=== PATIENT | female | born 1965 | race Caucasian/White ===

== ENCOUNTER 2023-02-22 08:06 | Outpatient (OUT) | payer OTHER, SELFPAY ==
[2023-02-22 08:25] LABS: Basophils Percent Auto 0.5 % (0.2-2.0); Eosinophils Absolute Auto 0.4 10^3/uL (0.0-0.7); Eosinophils Percent Auto 5.3 % (0.9-7.0); Hematocrit 42.6 % (36.0-48.0); Hemoglobin 14.1 g/dL (12.0-16.0); Immature Granulocytes Abs Auto 0.04 10^3/uL (0.00-0.03); Immature Granulocytes Pct Auto 0.5 % (0.0-0.5); Lymphocytes Absolute Auto 3.1 10^3/uL (1.2-3.8); Lymphocytes Percent Auto 37.8 % (20.5-60.0); Mean Corpuscular HGB Conc 33.1 g/dL (29.9-35.2); Mean Corpuscular Volume 87.5 fL (81.0-99.0); Mean Platelet Volume 8.7 fL (9.5-13.5); Monocytes Absolute Auto 0.6 10^3/uL (0.3-0.8); Monocytes Percent Auto 7.8 % (1.7-12.0); Neutrophils Absolute Auto 3.9 10^3/uL (1.4-6.5); Neutrophils Percent Auto 48.1 % (43.0-75.0); Platelet Count 325 10^3/uL (150-450); Red Blood Count 4.87 10^6/uL (4.20-5.40); Red Cell Distribution Width 13.1 % (11.0-15.0); White Blood Count 8.2 10^3/uL (4.0-11.0)
[2023-02-22 09:24] LABS: Alanine Aminotransferase 38 U/L (14-59); Albumin Globulin Ratio 0.9; Albumin Level 3.4 g/dL (3.4-5.0); Alkaline Phosphatase 69 U/L (46-116); Anion Gap 9.7; Aspartate Amino Transferase 19 U/L (15-37); BUN Creatinine Ratio 16.9; Bilirubin Total 0.3 mg/dL (0.2-1.0); Calcium 8.5 mg/dL (8.5-10.1); Carbon Dioxide 28.7 mmol/L (21.0-32.0); Chloride 105 mmol/L (98-107); Chol HDL Ratio 6.6; Cholesterol 224 mg/dL (<=200); Estimated GFR (African America >60 (>=60); Estimated GFR (Non-African Ame >60 (>=60); Glucose 104 mg/dL (74-106); HDL Cholesterol 34 mg/dL (40-60); Potassium 4.4 mmol/L (3.5-5.1); Sodium 139 mmol/L (136-145); Thyroid Stimulating Hormone 2.529 uIU/mL (0.358-3.740); Total Protein 7.4 g/dL (6.4-8.2); Triglycerides 135 mg/dL (<=150)
[2023-02-22 10:45] LABS: Free T4 1.45 ng/dL (0.76-1.46)
== END 2023-02-22 08:07 | disposition home or self-care (01) ==
LOC: LAB 08:06
PROVIDERS: PCP Nurse Practitioner; Visit Provider Nurse Practitioner
DX: E03.9 Hypothyroidism, unspecified (principal)
CPT/HCPCS: 36415; 80053; 80061; 84439; 84443; 85025

== ENCOUNTER 2025-02-28 09:39 | Outpatient (OUT) | payer MEDICAID, SELFPAY ==
--- OUTSIDE RECORDS SUMMARY | 2025-02-28 09:45 | XMS_ITS | Encounter Summary ---
Author Organization [facility] Address [address] [place] [address] Care Team Providers Care Copy Lathe Operator Name Role Phone Shantell Crow FLUX MIXER Unavailable [phone] Prieto Moran MD Primary Care Provider [phone] Shantell Crow FLUX MIXER Unavailable [phone] Encounter Details Date Type Department Care Team (Late st Contact Info) Description 08/07/2023 Orders Only [facility] [address] [place] [address] Shantell Crow NP [address] [place] [address] Social History Tobacco Use Types Packs/Day Years Used Date Smoking Tobacco: Never Assessed Social Connection and Isolat ion Panel [NHANES] Answer Date Recorded In a typical week, how many times do you talk on the phone with family, friends, or neighbors? More than three times a week 08/10/2023 How often do you get togethe r with friends or relatives? Twice a week 08/10/2023 How often do you attend chur ch or yarsanism services? Never 08/10/2023 Do you belong to any clubs o r organizations such as mormonism groups, unions, fraternal or athletic groups, or school groups? No 08/10/2023 How often do you attend meet ings of the clubs or organizations you belong to? Never 08/10/2023 Are you , , di vorced, , never , or living with a partner? 08/10/2023 AUDIT-C Answer Date Recorded Q1: How often do you have a drink containing alcohol? Never 08/10/2023 Q2: How many drinks containi ng alcohol do you have on a typical day when you are drinking? Patient does not drink 4 Q3: How often do you have si x or more drinks on one occasion? Never 08/10/2023 Overall Financial Resource Strain (CARDIA) Answe r Date Recorded How hard is it for you to pa y for the very basics like food, housing, medical care, and heating? Somewhat hard 08/10/2023 [facility] of Occupat [facility] - Occupational Stress Questionnaire Answer Date Recorded Do you feel stress - tense, restless, nervous, or anxious, or unable to sleep at night because your mind is troubled all the time - these days? Not at all 08/10/2023 Exercise Vital Sign Answer Date Recorde d On average, how many days pe r week do you engage in moderate to strenuous exercise (like a brisk walk)? 0 days 08/10/2023 On average, how many minutes do you engage in exercise at this level? 0 min 08/10/2023 Hunger Vital Sign Answer Date Recorded Within the past 12 months, y ou worried that your food would run out before you got the money to buy more. Never true 08/10/19 24 Within the past 12 months, t he food you bought just didn't last and you didn't have money to get more. Never true 08/10/2023 PRAPARE - Transportation Answer Date Re corded In the past 12 months, has l ack of transportation kept you from medical appointments or from getting medications? Yes 07/21 In the past 12 months, has l ack of transportation kept you from meetings, work, or from getting things needed for daily living? No 08/10/2023 Housing Stability Vital Sign Answer Aron e Recorded In the last 12 months, was t here a time when you were not able to pay the mortgage or rent on time? Yes 08/10/2023 In the last 12 months, how many places have you lived? 1 08/10/2023 In the last 12 months, was t here a time when you did not have a steady place to sleep or slept in a senior care (including now)? No 08/10/2023 Comments Unknown Sex and Gender Information Value Date Recorded Sex Assigned at Female 07/20/2023 1:59 PM EST Legal Sex Female 6:52 PM EDT Gender Identity Female 07/20/2023 1:59 PM EST Sexual Orientation Not on file documented as of this encounter Functional Status * Audit-C Score Answer Date of Assessment Author 0 08/10/2023 1:24 PM EST Mychart, Generic * Q1: How often do you have a drink containing alcohol? Answer Date of Assessment Author Never 08/10/2023 1:24 PM EST Mychart, Generic * Q2: How many drinks containing alcohol do you have on a typical day when you are drinking? Answer Date of Assessment Author Patient does not drink 08/10/2023 1:24 PM EST My chart, Generic * Q3: How often do you have six or more drinks on one occasion? Answer Date of Assessment Author Never 08/10/2023 1:24 PM EST Mychart, Generic * Over the past 2 weeks, how often have you been bothered by any of the following problems? Question Answer Date of Assessment Author Little interest or pleasure in doing things Not at all 08/10/2023 3:35 PM EST Rose Powers MA Feeling down, depressed, or hopeless Not at all 08/10/2023 3:35 PM EST Rose Powers MA Patient Health Questionnaire-2 Score 0 08/10/2023 3:35 PM EST Claudia Powers MA documented as of this encounter Plan of Treatment Not on file documented as of this encounter Procedures Procedure Name Priority Date/Time Associated Diagnosis Comments LAB COLOGUARD COLON CANCER SCREEN Routine 08/05/2023 3:12 PM EST documented in this encounter Results * Cologuard?? colon cancer screening (08/05/2023 3:12 PM EST) Stool us Shantell Crow FLUX MIXER LAB MOLECULAR DIAGNOSTICS ORDER FAWN Final Result documented in this encounter Visit Diagnoses Not on filedocumented in this encounter Care Teams Copy Lathe Operator Relationship Specialty Start Date End Date Prieto Moran MD PCP - General Family Medicine 07/21/23 Shantell Crow NP [address] [place] [address] PCP - RITESHS Humangamaliel [facility] 03/19/24 Shantell Crow NP Nurse Practitioner Family Medicine 02/17/23 documented as of this encounter
--- OUTSIDE RECORDS SUMMARY | 2025-02-28 09:45 | XMS_ITS | Encounter Summary ---
Author Organization [facility] Address [address] [place] [address] Care Team Providers Care Supervisor Properties Name Role Phone Shantell Crow NP Unavailable [phone] Prieto Moran MD Primary Care Provider [phone] Shantell Crow NP Unavailable [phone] Reason for Visit * Reason Comments Med Refill Encounter Details Date Type Department Care Team (Late st Contact Info) Description 10/18/2024 Refill [facility] [address] [place] [address] Shantell Crow NP [address] [place] [address] Pulmonary emphysema, unspecified emphysema type (HCC) Social History Tobacco Use Types Packs/Day Years Used Date Smoking Tobacco: Every Day Cigarettes Smokeless Tobacco: Never Alcohol Use Standard Drinks/Week Comments Never 0 (1 standard drink = 0.6 oz pure alcohol) caffine: 2-3 cups of coffee. diet pepsi: 2-3 daily Social Connection and Isolat ion Panel [NHANES] Answer Date Recorded In a typical week, how many times do you talk on the phone with family, friends, or neighbors? More than three times a week 08/10/2023 How often do you get togethe r with friends or relatives? Twice a week 08/10/2023 How often do you attend [facility] or pentecostal services? Never 08/10/2023 Do you belong to any clubs o r organizations such as moravian groups, unions, fraternal or athletic groups, or [...] you are drinking? Patient does not drink Q3: How often do you have si x or more drinks on one occasion? Never 08/10/2023 Overall Financial Resource Strain (CARDIA) Answe r Date Recorded How hard is it for you to pa y for the very basics like food, housing, medical care, and heating? Somewhat hard 08/10/2023 [facility] of Occupat ional Health - Occupational Stress Questionnaire Answer Date Recorded [...] place to sleep or slept in a residential (including now)? No 08/10/2023 Comments Unknown Sex and Gender Information Value Date Recorded Sex Assigned at Female 07/20/2023 1:59 PM EST Legal Sex Female 6:52 PM EDT Gender Identity Female 07/20/2023 1:59 PM EST Sexual Orientation Not on file documented as of this encounter Plan of Treatment Not on file documented as of this encounter Visit Diagnoses Diagnosis Pulmonary emphysema, unspecified emphysema type (HCC) documented in this encounter Care Teams Supervisor Properties Relationship Specialty Start Date End Date Prieto Moran MD PCP - General Family Medicine 07/21/23 Shantell Crow NP [address] [place] [address] PCP - GREGG Hernandez [facility] 03/19/24 Shantell Crow NP Nurse Practitioner Family Medicine 02/17/23 documented as of this encounter
--- OUTSIDE RECORDS SUMMARY | 2025-02-28 09:45 | XMS_ITS | Encounter Summary ---
Author Organization [facility] Address [address] [place] [address] Care Team Providers Care Polymerization Oven Tender Name Role Phone Shantell Crow NP Unavailable [phone] Prieto Moran MD Primary Care Provider [phone] Shantell Crow NP Unavailable [phone] Reason for Visit * Reason Comments Med Refill Encounter Details Date Type Department Care Team (Late st Contact Info) Description 09/11/2023 Refill [facility] [address] [place] [address] Shantell Crow NP [address] [place] [address] Tobacco dependence Social History Tobacco Use Types Packs/Day Years [...] week 08/10/2023 How often do you attend [facility] or temple services? Never 08/10/2023 Do you belong to any clubs o r organizations such as taoist groups, unions, fraternal or athletic groups, or [...] medical care, and heating? Somewhat hard 08/10/2023 [facility] of Occupat ional Health - Occupational Stress [...] place to sleep or slept in a detention (including now)? No 08/10/2023 Comments Unknown Sex and Gender Information Value Date Recorded Sex Assigned at Female 07/20/2023 1:59 PM EST Legal Sex Female 6:52 PM EDT Gender Identity Female 07/20/2023 1:59 PM EST Sexual Orientation Not on file documented as of this encounter Miscellaneous Notes * Telephone Encounter - Shantell Crow NP - 09/11/2023 4:25 PM EDT This was just the starter pack, should be taking the continuing pack now documented in this encounter Plan of Treatment Not on file documented as of this encounter Visit Diagnoses Diagnosis Tobacco dependence Tobacco use disorder documented in this encounter Care Teams Polymerization Oven Tender Relationship Specialty Start Date End Date Prieto Moran MD PCP - General Family Medicine 07/21/23 Shantell Crow NP [address] [place] [address] PCP - GREGG Hernandez [facility] 03/19/24 Shantell Crow NP Nurse Practitioner Family Medicine 02/17/23 documented as of this encounter
--- OUTSIDE RECORDS SUMMARY | 2025-02-28 09:45 | XMS_ITS | Encounter Summary ---
Author Organization [facility] Address [address] [place] [address] Care Team Providers Care Filtration Supervisor Name Role Phone Shantell Crow NP Unavailable [phone] Prieto Moran MD Primary Care Provider [phone] Shantell Crow NP Unavailable [phone] Reason for Visit * Reason Comments Med Refill Encounter Details Date Type Department Care Team (Late st Contact Info) Description 01/23/2024 Refill [facility] [address] [facility] [facility] [place] [place] [address] Shantell Crow NP [address] [facility] [place] [address] Environmental and seasonal allergies; Pulmonary emphysema, unspecified emphysema type (HCC) Social [...] week 08/10/2023 How often do you attend [facility] or uatsdin services? Never 08/10/2023 Do you belong to any clubs o r organizations such as advent groups, unions, fraternal or athletic groups, or [...] medical care, and heating? Somewhat hard 08/10/2023 [facility] of Occupat ional [facility] - Occupational Stress Questionnaire Answer Date Recorded [...] place to sleep or slept in a prison (including now)? No 08/10/2023 Comments Unknown Sex and Gender Information Value Date Recorded Sex Assigned at Female 07/20/2023 1:59 PM EST Legal Sex Female 6:52 PM EDT Gender Identity Female 07/20/2023 1:59 PM EST Sexual Orientation Not on file documented as of this encounter Plan of Treatment Not on file documented as of this encounter Visit Diagnoses Diagnosis Environmental and seasonal allergies Pulmonary emphysema, unspecified emphysema type (HCC) documented in this encounter Care Teams Filtration Supervisor Relationship Specialty Start Date End Date Prieto Moran MD PCP - General Family Medicine 07/21/23 Shantell Crow NP [address] [place] [address] PCP - GREGG Hernandez [facility] 03/19/24 Shantell Crow NP Nurse Practitioner Family Medicine 02/17/23 documented as of this encounter
--- OUTSIDE RECORDS SUMMARY | 2025-02-28 09:45 | XMS_ITS | Encounter Summary ---
Author Organization [facility] Address [address] [place] [address] Care Team Providers Care Sales Enablement Lead Name Role Phone Shantell Crow NP Unavailable [phone] Prieto Moran MD Primary Care Provider [phone] Shantell Crow NP Unavailable [phone] Reason for Visit * Reason Comments Med Refill Encounter Details Date Type Department Care Team (Late st Contact Info) Description 07/19/2023 Refill [facility] [address] [facility] [place] [address] Shantell Crow NP [address] [place] [address] Chronic obstructive pulmonary disease, unspecified (HCC); Other specified chronic obstructive pulmonary disease (HCC) Social History Tobacco Use Types Packs/Day Years Used Date Smoking Tobacco: Never Assessed Comments Unknown Sex and Gender Information Value Date Recorded Sex Assigned at Female 07/20/2023 1:59 PM EST Legal Sex Female 6:52 PM EDT Gender Identity Female 07/20/2023 1:59 PM EST Sexual Orientation Not on file documented as of this encounter Miscellaneous Notes * Telephone Encounter - Jannette NuneshiwotcrisISREAL - 07/20/2023 3:28 PM EST Pt called needing a refill on her albuterol HFA 90 mcg/act inhaler. I let her know she has not beenin since february. She made an appt for the but she would like an inhaler sent in she does nothave many puffs left. documented in this encounter Plan of Treatment Not on file documented as of this encounter Visit Diagnoses Diagnosis Chronic obstructive pulmonary disease, unspecified (HCC) Other specified chronic obstructive pulmonary disease (HCC) documented in this encounter Care Teams Sales Enablement Lead Relationship Specialty Start Date End Date Prieto Moran MD PCP - General Family Medicine 07/21/23 Shantell Crow NP [address] [place] [address] PCP - GREGG Hernandez [facility] 03/19/24 Shantell Crow NP Nurse Practitioner Family Medicine 02/17/23 documented as of this encounter
--- OUTSIDE RECORDS SUMMARY | 2025-02-28 09:45 | XMS_ITS | Encounter Summary ---
Author Organization [facility] Address [address] [place] [address] Care Team Providers Care Extract Operator Name Role Phone Shantell Crow BRANCH LEAD Unavailable [phone] Prieto Moran MD Primary Care Provider [phone] Shantell Crow NP Unavailable [phone] Encounter Details Date Type Department Care Team (Late st Contact Info) Description 07/25/2023 Abstract [facility] [address] [place] [address] Shantell Crow NP [address] [place] [address] Social History Tobacco Use Types Packs/Day Years [...] documented as of this encounter Visit Diagnoses Not on filedocumented in this encounter Care Teams Extract Operator Relationship Specialty Start Date End Date Prieto Moran MD PCP - General Family Medicine 07/21/23 Shantell Crow NP [address] [place] [address] PCP - [facility] 03/19/24 Shantell Crow NP Nurse Practitioner Family Medicine 02/17/23 documented as of this encounter
--- OUTSIDE RECORDS SUMMARY | 2025-02-28 09:46 | XMS_ITS | Clinical Summary ---
Author Organization [facility] Address [address] [place] [address] Care Team Providers Care Warp Hauler Name Role Phone Shantell Crow NP Unavailable [phone] Prieto Moran MD Primary Care Provider [phone] Shantell Crow NP Unavailable [phone] Allergies Active Allergy Reactions Criticality Noted Date Comments Codeine GI intolerance 07/21/2023 Medications raNITIdine HCl (ZANTAC 150 MAXIMUM STRENGTH PO) Take 150 mg by mouth in the morning and 150 mg before bedtime. Active loratadine (Claritin) 10 MG tabletIndications :Environmental and seasonal allergies Take 1 tablet (10 mg) by mouth Daily 90 tablet 1 02/27/20 24 Active pravastatin (Pravachol) 20 MG tabletIndications :Mixed hyperlipidemia Take 1 tablet (20 mg) by mouth at bedtime 30 tablet 1 03/20/20 24 Active albuterol HFA 90 mcg/act inhalerIndication s:Pulmonary emphysema, unspecified emphysema type (HCC) Inhale 2 puffs every 6 (six) hours if needed for wheezing or shortness of breath 18 g 09/17/19 25 Active Umeclidinium-Maira nterol (Anoro Ellipta) 62.5-25 MCG/ACT aerosol powderIndications :Pulmonary emphysema, unspecified emphysema type (HCC) Inhale 1 puff Daily 180 each 11/08/19 25 Active metoprolol succinate XL (Toprol-XL) 100 MG 24 hr tabletIndications :Heart palpitations Take 1 tablet (100 mg) by mouth Daily 90 tablet 11/08/19 25 Active levothyroxine (Synthroid, Levoxyl) 150 MCG tabletIndications :Hypothyroidism, unspecified type Take 1 tablet (150 mcg) by mouth in the morning. Take before meals. 90 tablet 01/27/20 25 025 Active metoprolol succinate XL (Toprol-XL) 25 MG 24 hr tabletIndications :heart palpitations TAKE 1 TABLET (25 MG) BY MOUTH DAILY. DO NOT CRUSH OR CHEW. 90 tablet 1 02/17/20 25 025 Active aspirin 81 MG EC tabletIndications :Heart palpitations TAKE 1 TABLET BY MOUTH EVERY DAY 90 tablet 1 02/17/20 25 Active metoprolol succinate XL (Toprol-XL) 25 MG 24 hr tabletIndications :heart palpitations Take 1 tablet (25 mg) by mouth Daily Do not crush or chew. 90 tablet 1 06/26/19 25 025 Discontinued aspirin 81 MG EC tabletIndications :Heart palpitations Take 1 tablet (81 mg) by mouth Daily 90 tablet 1 08/21/19 25 025 Discontinued Active Problems Problem Noted Date Diagnosed Date COVID-19 virus detected 03/21/2024 Morbid (severe) obesity due to excess calories 0 02/21/2024 Body mass index (BMI) 45.0-49.9, adult 4 Assessment & Plan (02/27/2024 1:24 PM EDT): Recommend weight watchers Encounter for screening mamm ogram for malignant neoplasm of breast 08/10/2023 Chronic left shoulder pain 08/10/2023 Assessment & Plan (08/10/2023 5:57 PM EST): Check xray Consider ortho GERD (gastroesophageal reflux disease) 4 Osteopenia 08/03/2023 Dyshidrotic hand dermatitis 08/03/2023 Vitamin D deficiency 08/03/2023 Assessment & Plan (02/27/2024 1:17 PM EDT): Check labs Hypothyroidism 08/03/2023 Assessment & Plan (02/27/2024 1:17 PM EDT): No changes in meds Check labs Assessment & Plan (08/10/2023 5:57 PM EST): No changes in meds Psoriasis 08/03/2023 Assessment & Plan (02/27/2024 1:26 PM EDT): Trial triamcinolone ointment to affected areas Tobacco dependence 08/03/2023 Assessment & Plan (08/10/2023 5:59 PM EST): Would like to quit smoking restart chantix had quit for 2 months, then lost his job and a lot of stress Went back to smoking , would like to try again Seasonal allergies 08/03/2023 Hyperglycemia 08/03/2023 Environmental and seasonal allergies 08/03/2023 Depression 08/03/2023 Anxiety 08/03/2023 Allergic rhinitis 08/03/2023 Emphysema/COPD 07/20/2023 Assessment & Plan (02/27/2024 1:15 PM EDT): Stable on current meds Refill anoro Fu in 3 months Assessment & Plan (08/10/2023 5:56 PM EST): Stable on current meds Refill anoro Fu in 3 months Heart palpitations 06/26/2023 Assessment & Plan (02/27/2024 1:16 PM EDT): Stable on b helio, only takes the 25mg if needed No other changes in med dose Assessment & Plan (08/10/2023 5:57 PM EST): Stable on b helio Mixed hyperlipidemia 06/26/2023 Assessment & Plan (02/27/2024 1:23 PM EDT): Atorvastatin caused intolerance of muscle cramps, which stopped when she stopped the med We will trial pravastatin at 20mg daily Recheck labs in 8 weeks Resolved Problems Problem Noted Date Diagnosed Date Resolved Date Hyperlipidemia 08/03/2023 02/27/2024 Encounters Date Type Department Care Team Description 02/15/2025 Refill [facility] [address] [place] [address] Shantell Crow NP Heart palpitations 02/05/2025 Refill [facility] [address] [place] [address] Shantell Crow NP Heart palpitations; Pulmonary emphysema, unspecified emphysema type (HCC) 01/26/2025 Telephone [facility] [address] [place] [address] Shantell Crow NP 01/26/2025 Refill [facility] [address] [place] [address] Shantell Crow NP Hypothyroidism, unspecified type from Last 3 Months Immunizations Immunization Administration Dates Next Due Influenza, injectable, quadr ivalent, preservative free 05/05/2021,04/20/2020,03/22/2019 Family History Medical History Relation Name Comments COPD Father Emphysema Father Hypertension Mother Relation Name Status Comments Brother Alive Daughter Alive Father Mother Alive Sister 1 Alive Sister 2 Alive Sister 3 Alive Son 1 Alive Son 2 Alive Social History Tobacco Use Types Packs/Day Years Used Date Smoking Tobacco: Every Day Cigarettes Smokeless Tobacco: Never Tobacco Cessation:Ready to Q uit: Not Asked; Counseling Given: Not Answered Alcohol Use Standard Drinks/Week Comments Never 0 [...] 08/10/2023 How often do you attend chur or gnosticism services? Never 08/10/2023 Do you belong to any clubs o r organizations such as caodaism groups, unions, fraternal or athletic groups, or [...] medical care, and heating? Somewhat hard 08/10/2023 [facility] of Occupat ional Health - Occupational Stress [...] place to sleep or slept in a skilled nursing (including now)? No 08/10/2023 Comments Unknown Sex and Gender Information Value Date Recorded Sex Assigned at Female 07/20/2023 1:59 PM EST Legal Sex Female 6:52 PM EDT Gender Identity Female 07/20/2023 1:59 PM EST Sexual Orientation Not on file Last Filed Vital Signs Vital Sign Reading Time Taken Comments Blood Pressure 122/88 02/27/2024 11:15 AM EDT Pulse 94 02/27/2024 11:15 AM EDT Temperature 37.1 C (98.7 F) 02/27/2024 11:15 AM EDT Respiratory Rate 18 02/27/2024 11:15 AM EDT Oxygen Saturation 95% 02/27/2024 11:15 AM EDT Inhaled Oxygen Concentration - - Weight 130 kg (286 lb 9.6 oz) 02/27/2024 11:15 A M EDT Height 165.1 cm (5' 5 ) 02/27/2024 11:15 AM EDT Body Mass Index 47.69 02/27/2024 11:15 AM EDT Plan of Treatment Health Maintenance Due Date Last Done Comments CT Colonography 1964 Colonoscopy 1964 FIT 1964 FOBT 1964 Sigmoidoscopy 1964 HPV/Cotest 01/05/1994 Pap Smear 09/13/2021 09/13/2018 Mammogram 08/25/2023 08/24/2022 Influenza Vaccine (#1) 2025 05/05/2021, 2019, 03/22/2019 Colorectal Cancer Screening 08/05/2026 FIT-DNA 08/05/2026 08/05/2023 Cervical Cancer Screening Discontinued Procedures Procedure Name Priority Date/Time Associated Diagnosis Comments LAB COLOGUARD COLON CANCER SCREEN Routine 08/05/2023 3:12 PM EST from Last 3 Months or Most Recently Relevant to Health Maintenance Results * Cologuard?? colon cancer screening (08/05/2023 3:12 PM EST) Stool Shantell Crow NP LAB MOLECULAR DIAGNOSTICS ORDER FAWN Final Result from Last 3 Months or Most Recently Relevant to Health Maintenance Insurance [facility] [employer] [place] Care Teams Warp Hauler Relationship Specialty Start Date End Date Prieto Moran MD PCP - General Family Medicine 07/21/23 Shantell Crow NP [address] [place] [address] PCP - [facility] [employer] [facility] 03/19/24 Shantell Crow NP Nurse Practitioner Family Medicine 02/17/23
--- OUTSIDE RECORDS SUMMARY | 2025-02-28 09:46 | XMS_ITS | Encounter Summary ---
Author Organization [facility] Address [address] [place] [address] Care Team Providers Care [employer] Name Role Phone Shantell Crow NP Unavailable [phone] Prieto Moran MD Primary Care Provider [phone] Shantell Crow NP Unavailable [phone] Reason for Visit * Reason Comments Med Refill Encounter Details Date Type Department Care Team (Late st Contact Info) Description 02/05/2025 Refill [facility] [address] [place] [address] Shantell Crow NP [address] [address] Heart palpitations; Pulmonary emphysema, unspecified emphysema type (HCC) Social [...] week 08/10/2023 How often do you attend [facility] or buddhism services? Never 08/10/2023 Do you belong to any clubs o r organizations such as faith groups, unions, fraternal or athletic groups, or [...] medical care, and heating? Somewhat hard 08/10/2023 [facility] - Occupational [...] as of this encounter Visit Diagnoses Diagnosis Heart palpitations Palpitations Pulmonary emphysema, unspecified emphysema type (HCC) documented in this encounter Care Teams [employer] Relationship Specialty Start Date End Date Prieto Moran MD PCP - General Family Medicine 07/21/23 Shantell Crow NP [address] [place] [address] PCP - [facility] 03/19/24 Shantell Crow NP Nurse Practitioner Family Medicine 02/17/23 documented as of this encounter
--- OUTSIDE RECORDS SUMMARY | 2025-02-28 09:46 | XMS_ITS | Encounter Summary ---
Author Organization [facility] Address [address] [place] [address] Care Team Providers Care Health Informatics Specialist Name Role Phone Shantell Crow NP Unavailable [phone] Prieto Moran MD Primary Care Provider [phone] Shantell Crow NP Unavailable [phone] Reason for Visit * Reason Comments Med Refill Encounter Details Date Type Department Care Team (Late st Contact Info) Description 02/27/2024 Refill [facility] [address] [place] [address] Shantell Crow NP [address] [place] [address] Heart palpitations Social History Tobacco Use Types Packs/Day Years [...] week 08/10/2023 How often do you attend [facility] or samaritan services? Never 08/10/2023 Do you belong to any clubs o r organizations such as hinduism groups, unions, fraternal or athletic groups, or [...] medical care, and heating? Somewhat hard 08/10/2023 [facility] - Occupational Stress [...] place to sleep or slept in a fci (including now)? No 08/10/2023 Comments Unknown Sex and Gender Information Value Date Recorded Sex Assigned at Female 07/20/2023 1:59 PM EST Legal Sex Female 6:52 PM EDT Gender Identity Female 07/20/2023 1:59 PM EST Sexual Orientation Not on file documented as of this encounter Plan of Treatment Not on file documented as of this encounter Visit Diagnoses Diagnosis Heart palpitations Palpitations documented in this encounter Care Teams Health Informatics Specialist Relationship Specialty Start Date End Date Prieto Moran MD PCP - General Family Medicine 07/21/23 Shantell Crow NP [address] [place] [address] PCP - [facility] [employer] [facility] 03/19/24 Shantell Crow NP Nurse Practitioner Family Medicine 02/17/23 documented as of this encounter
--- OUTSIDE RECORDS SUMMARY | 2025-02-28 09:46 | XMS_ITS | Encounter Summary ---
Author Organization [facility] Address [address] [place] [address] Care Team Providers Care Health Care Analyst Name Role Phone Shantell Crow NP Unavailable [phone] Prieto Moran MD Primary Care Provider [phone] Shantell Crow NP Unavailable [phone] Reason for Visit * Reason Comments Med Refill Encounter Details Date Type Department Care Team (Late st Contact Info) Description 02/15/2025 Refill [facility] [address] [place] [address] Shantell Crow NP [address] [place] [address] Heart palpitations Social History Tobacco Use Types [...] week 08/10/2023 How often do you attend [facility] or sikh services? Never 08/10/2023 Do you belong to any clubs o r organizations such as sikh groups, unions, fraternal or athletic groups, or [...] medical care, and heating? Somewhat hard 08/10/2023 [facility] - [...] place to sleep or slept in a halfway (including now)? No 08/10/2023 Comments Unknown Sex [...] documented in this encounter Care Teams Health Care Analyst Relationship Specialty Start Date End Date Prieto Moran MD PCP - General Family Medicine 07/21/23 Shantell Crow NP [address] [place] [address] PCP - [facility] [employer] [facility] 03/19/24 Shantell Crow NP Nurse Practitioner Family Medicine 02/17/23 documented as of this encounter
[2025-02-28 10:42] LABS: Glucose Urine UA NEGATIVE (NEGATIVE)
[2025-02-28 10:43] LABS: Hematocrit 39.3 % (36.0-48.0); Hemoglobin 13.2 g/dL (12.0-16.0); Immature Granulocytes Abs Auto 0.02 10^3/uL (0.00-0.03); Immature Granulocytes Pct Auto 0.3 % (0.0-0.5); Lymphocytes Absolute Auto 2.2 10^3/uL (1.2-3.8); Mean Corpuscular HGB Conc 33.6 g/dL (29.9-35.2); Mean Corpuscular Hemoglobin 28.4 pg (26.7-34.0); Mean Corpuscular Volume 84.7 fL (81.0-99.0); Platelet Count 356 10^3/uL (150-450); Red Blood Count 4.64 10^6/uL (4.20-5.40); White Blood Count 6.3 10^3/uL (4.0-11.0)
[2025-02-28 10:59] LABS: Alanine Aminotransferase 41 U/L (14-59); Albumin Globulin Ratio 0.8; Albumin Level 3.6 g/dL (3.4-5.0); Alkaline Phosphatase 76 U/L (46-116); Anion Gap 13.2; Aspartate Amino Transferase 23 U/L (15-37); Blood Urea Nitrogen 12.0 mg/dL (7.0-18.0); Calcium 8.8 mg/dL (8.5-10.1); Carbon Dioxide 28.3 mmol/L (21.0-32.0); Chloride 105 mmol/L (98-107); Cholesterol 204 mg/dL (<=200); Estimated GFR (African America >60 (>=60 mL/min/1.73m^2); Estimated GFR (Non-African Ame >60 (>=60 mL/min/1.73m^2); Globulin 4.4 g/dL; Glucose 103 mg/dL (74-106); HDL Cholesterol 38 mg/dL (40-60); Potassium 4.5 mmol/L (3.5-5.1); Sodium 142 mmol/L (136-145); Thyroid Stimulating Hormone 1.997 uIU/mL (0.358-3.740); Total Protein 8.0 g/dL (6.4-8.2); Triglycerides 113 mg/dL (<=150); VLDL CHOLESTEROL 22.6 mg/dL
[2025-02-28 11:29] LABS: Cast Seen? NONE SEEN #/LPF (NONE SEEN); Crystals Seen? None Seen #/HPF (None Seen)
== END 2025-02-28 09:40 | disposition home or self-care (01) ==
LOC: LAB 09:42
PROVIDERS: PCP Nurse Practitioner; Visit Provider Nurse Practitioner
DX: E03.9 Hypothyroidism, unspecified (principal); J43.9 Emphysema, unspecified; E66.01 Morbid (severe) obesity due to excess calories; E55.9 Vitamin D deficiency, unspecified; E78.2 Mixed hyperlipidemia; F17.200 Nicotine dependence, unspecified, uncomplicated
CPT/HCPCS: 36415; 80053; 80061; 81001; 82306; 84439; 84443; 85025